=== PATIENT | female | born 1970 | race Asian ===

== ENCOUNTER 2017-06-03 20:05 | Emergency (ER) | payer SELFPAY ==
[2017-06-03 23:07] VITALS: BP 151/90
== END 2017-06-03 23:07 | disposition home or self-care (01) ==
LOC: ED 20:05
DX: S20.212A Contusion of left front wall of thorax, initial encounter (principal); Y04.8XXA Assault by other bodily force, initial encounter; Y93.89 Activity, other specified; Y92.89 Other specified places as the place of occurrence of the external cause; Y99.8 Other external cause status
CPT/HCPCS: J1885